=== PATIENT | male | born 1990 | race Caucasian/White ===

== ENCOUNTER 2019-11-03 02:09 | Emergency (ER) | payer MEDICAID, SELFPAY ==
[2019-11-03 02:10] VITALS: BP 133/72; PULSE 84; RESP 20; TEMP 37.2; O2SAT 97
[2019-11-03] MEDS: AMOXICILLIN 500 MG CAPSULE PO (02:38)
--- NOTE | 2019-11-03 02:51 | ED_ITS ---
HPI - Dental/Oral General Chief complaint: Dental/Oral Stated complaint: tooth pain Source: patient Mode of arrival: ambulatory Limitations: no limitations History of Present Illness HPI Narrative: 29-year-old male complains of left maxillary tooth pain and left cheek pain for the last month. He took and amoxicillin tablet recently and had some temporary relief. this evening he has excruciating pain.Another a moxicillin this evening made no difference. He denies fevers chills difficulty swallowing or neck pain. He recently missed an appointment to see his dentist and has to reschedule Location: Tooth # (15) Related Data Allergies Allergy/AdvReac Type Severity Reaction Status Date / Time No Known Allergies Allergy Verified 11/03/19 02:24 Review of Systems ENT: Reports system reviewed and no additional complaints, except as documented [facility] Social History Social History (Updated 11/03/19 @ 03:00 by Alex Rashid MD) Substance use type: does not use Exam Const: Other: Appears to be in severe pain, holding the left side of his face, moving from upright to hip flexed position. HENMT: Other: There is no facial swelling or erythema. Is a fully open his mouth. There is inflammation along his gum line. no left axillary dental caries appreciated. He has severe pain with tapping of tooth #14. Eyes: Other: Neck: Neck: no lymphadenopathy Course Course Emergency Course: pain decreased to a 8/10 after 2 [place] 5/325. He was also given amoxicillin 500. Vital Signs Vital signs: Vital Signs Temperature 37.2 C 11/03/19 02:10 Pulse Rate 84 11/03/19 02:10 Respiratory Rate 11/03/19 02:10 Blood Pressure 133/72 11/03/19 02:10 Pulse Oximetry 97 11/03/19 02:10 Temperature 37.2 C 11/03/19 02:10 Pulse Rate 84 11/03/19 02:10 Respiratory Rate 20 11/03/19 02:10 Blood Pressure 133/72 11/03/19 02:10 Pulse Oximetry 97 11/03/19 02:10 MDM - Dental/Oral Differential Diagnosis Differential diagnosis: Likely dental caries, dental abscess and other (drug seeking) Discharge Plan Discharge Clinical Impression: Dental abscess Patient Disposition: Home, Self-Care Condition: Stable Instructions: Antibiotic Form, Dental Abscess (ED), Toothache (ED) Additional Instructions: Make follow-up appointment with dentist Prescriptions: New amoxicillin 500 mg capsule 500 mg PO Q8H Qty: 21 RF: 0 hydrocodone-acetaminophen [[place]] 5-325 mg tablet 2 tablet PO Q6H PRN (Reason: pain) Qty: 8 RF: 0 Follow-up/Referrals: NON-NURSING STAFF,ADMISSIONS [Primary Care Provider] - Stand Alone Forms: Work/School Release IP Time of Disposition: 02:55 Discharge Date/Time: 11/03/19 03:02
== END 2019-11-03 03:02 | disposition home or self-care (01) ==
PROVIDERS: Emergency Provider Family Medicine
DX: K04.7 Periapical abscess without sinus (principal)
CPT/HCPCS: 99283; A9270

== ENCOUNTER 2019-11-05 03:10 | Emergency (ER) | payer MEDICAID, SELFPAY ==
[2019-11-05 03:19] VITALS: BP 150/89; PULSE 75; RESP 20; TEMP 36.2; O2SAT 98
--- NOTE | 2019-11-05 03:33 | ED.DENTAL ---
HPI - Dental/Oral General Chief complaint: Dental/Oral Stated complaint: TOOTH ACHE Source: patient Mode of arrival: ambulatory Limitations: no limitations History of Present Illness HPI Narrative: patient presents with dental pain, has a history of dental caries, was some recently in our ER approximately 1 day ago and was treated for a dental infection was given antibiotics and hydrocodone was sent to his pharmacy. The patient states that he did not potato picker his pain medication but after reviewing the the pharmacy records he did potato picker the the hydrocodone. Currently there is no fever or chills as tender left submandibular gland with no shortness of breath no nausea vomiting. MD Complaint: tooth pain Teeth map: 1. Onset (ago): hour(s) Duration: constant Severity: moderate Severity scale (1-10): 8 Relieving factors: nothing Exacerbating factors: chewing and cold Context: history of dental caries and poor dental care Associated symptoms: gum swelling Treatment prior to arrival: none Related Data Allergies Allergy/AdvReac Type Severity Reaction Status Date / Time No Known Allergies Allergy Verified 11/03/19 02:24 Review of Systems Review of Systems: All systems reviewed & are unremarkable except as noted in HPI and below PMFSH Past Medical History Medical History Dental caries Social History Social History Substance use type: does not use Exam Const: General: no acute distress and alert Orientation/consciousness: patient oriented x3 HENMT: Head: normal to inspection Other: right upper molar dental pain with surrounding gum inflammation Eyes: Pupils: Equal, round and reactive pupils present Neck: Neck: normal visual inspection and no lymphadenopathy Chest: Chest palpation & inspection: normal inspection of the chest Resp: Effort & Inspection: normal respiratory effort Cardio: Rate: regular rate Rhythm: regular rhythm GI: Auscultation: normal bowel sounds Back/Spine/Pelvis: Back: no CVA tenderness Skin: General skin exam: normal color Rashes: no rashes Neuro: General: patient oriented x3, moves all extremities and no meningeal signs Extrem: General: normal to inspection Psych: Appearance: grossly normal Mental Status: mental status grossly normal Course Vital Signs Vital signs: Vital Signs Temperature 36.2 C L 11/05/19 03:19 Pulse Rate 75 11/05/19 03:19 Respiratory Rate 20 11/05/19 03:19 Blood Pressure 150/89 H 11/05/19 03:19 Pulse Oximetry 98 11/05/19 03:19 Temperature 36.2 C L 11/05/19 03:19 Pulse Rate 75 11/05/19 03:19 Respiratory Rate 11/05/19 03:19 Blood Pressure 150/89 H 11/05/19 03:19 Pulse Oximetry 98 11/05/19 03:19 Critical Care Time Critical Care Time Critical Care Time: No Discharge Plan Discharge Clinical Impression: Dental abscess Patient Disposition: Home, Self-Care Condition: Stable Instructions: Antibiotic Form, Dental Abscess (ED) Additional Instructions: take medicine as prescribed, follow-up with dentist as soon as possible for further evaluation and treatment. Prescriptions: New tramadol [[place]] 50 mg tablet 50 mg PO Q6H PRN (Reason: pain) Qty: 20 RF: 0 No Action amoxicillin 500 mg capsule 500 mg PO Q8H Qty: 21 RF: 0 hydrocodone-acetaminophen [[place]] 5-325 mg tablet 2 tablet PO Q6H PRN (Reason: pain) Qty: 8 RF: 0 Follow-up/Referrals: UNKNOWN,DOCTOR [Primary Care Provider] - Stand Alone Forms: Work/School Release IP Time of Disposition: 03:40
[2019-11-05] MEDS: KETOROLAC (*BKC) 60 MG/2 ML VIAL IM (03:41)
[2019-11-05 03:44] VITALS: BP 140/82; PULSE 85; RESP 20; O2SAT 98
== END 2019-11-05 04:01 | disposition home or self-care (01) ==
PROVIDERS: Emergency Provider Emergency Medicine
DX: K04.7 Periapical abscess without sinus (principal)
CPT/HCPCS: 96372; 99283; J1885

== ENCOUNTER 2019-11-12 20:56 | Emergency (ER) | payer MEDICAID, SELFPAY ==
[2019-11-12 21:00] VITALS: BP 147/83; PULSE 76; RESP 24; TEMP 36.8; O2SAT 99
[2019-11-12 21:38] VITALS: RESP 20; O2SAT 99
--- NOTE | 2019-11-12 21:53 | ED.DENTAL ---
HPI - Dental/Oral General Chief complaint: Dental/Oral Stated complaint: tooth ache Time Seen by Provider: 11/12/19 21:30 Source: patient Mode of arrival: ambulatory Limitations: no limitations History of Present Illness HPI Narrative: 29-year-old man comes in tonight complaining of dental pain he has had for the last month. Patient states he saw a dentist 3 weeks ago and they talked about extraction. A week ago he received antibiotics and pain medication but he has used all of them As of 2 days ago. He states that in the last 4 hours his pain got much worse. The pain is in the left upper 1st and 2nd molars and he denies difficulty swallowing, difficulty breathing, fever, vomiting, facial swelling, and previous similar symptoms. MD Complaint: tooth pain Teeth map: 1. Tenderness Onset (ago): hour(s) (4) Duration: constant Severity: severe Relieving factors: nothing Exacerbating factors: chewing Treatment prior to arrival: oral analgesic ( Tylenol. Took 600 mg ibuprofen yesterday, but none today.) Related Data Allergies Allergy/AdvReac Type Severity Reaction Status Date / Time No Known Allergies Allergy Verified 11/03/19 02:24 Review of Systems Constitutional: Constitutional: Denies chills and Denies fever(s) Eyes: Eyes: Denies change in vision and Denies photophobia ENT: Denies dysphagia, Denies nasal congestion and Denies sore throat Cardiovascular: Cardiovascular: Denies chest pain and Denies radiating jaw, neck or arm pain Respiratory: Respiratory: Denies cough, Denies dyspnea and Denies wheezing Gastrointestinal: Gastrointestinal: Denies abdominal pain, Denies nausea and Denies vomiting Musculoskeletal: Musculoskeletal: Denies arthralgias and Denies joint swelling Integumentary/Breasts: Skin/Breast: Denies pruritus, Denies erythema and Denies rash Neurologic: Denies vertigo, Denies dizziness, Denies syncope, Denies focal weakness and Denies numbness Hematologic/Lymphatic: Hematologic/Lymphatic: Denies easy bleeding and Denies easy bruising Allergic/Immunologic: Allergic/Immunologic: Denies lip swelling and Denies wheezing PMFSH Past Medical History Medical History Dental caries Social History Social History Substance use type: does not use Exam Const: General: healthy appearing and alert Nutritional Appearance: well nourished Orientation/consciousness: patient oriented x3 Limitations: no limitations Other: moderate acute distress. HENMT: Ears: external ears normal, TM's normal bilaterally and EAC's normal Mouth: Yes Normal oral and palatal mucosa present and Yes moist mucous membranes Throat: posterior oropharynx normal and uvula midline Other: Tenderness teeth number 14 15. No swelling or gum erythema noted. Eyes: Conjunctivae: conjunctivae normal Pupils: Equal, round and reactive pupils present EOM: EOMs intact bilaterally Neck: Neck: normal visual inspection and no lymphadenopathy Resp: Effort & Inspection: normal respiratory effort and not labored Auscultation: clear to auscultation bilaterally, no rales, no rhonchi and no wheezes Cardio: Rate: regular rate Rhythm: regular rhythm Heart sounds: no murmurs Skin: General skin exam: normal color, no jaundice and no pallor Rashes: no rashes Neuro: General: patient oriented x3, moves all extremities, no meningeal signs, no focal motor deficits and CN's II-XI intact bilaterally Speech: normal speech Extrem: General: normal to inspection and no clubbing, cyanosis or edema Psych: Appearance: grossly normal and well kempt Mental Status: mental status grossly normal Affect: normal affect Attitude: cooperative Thought content: Yes Normal thought content present Course Course Emergency Course: As [employer] was down at the time of this visit was given written prescriptions for Tylenol with codeine, quantity 15, sig
--- NOTE | 2019-11-12 22:55 | PC.NURSE ---
[facility] DOWNTIME DURING PATIENT ER VISIT. PAPER CHARTING COMPLETED. MEDICATIONS ADMINISTERED BY PAPER MAR. MEDICATIONS ORDERED BY ERP PER PAPER MEDICATION ORDERING SHEET. PLEASE SEE PAPER CHART FOR FURTHER INFORMATION.
== END 2019-11-12 21:41 | disposition home or self-care (01) ==
PROVIDERS: Emergency Provider Emergency Medicine
DX: K08.89 Other specified disorders of teeth and supporting structures (principal)
CPT/HCPCS: 99283

== ENCOUNTER 2020-11-08 15:14 | Emergency (ER) | payer OTHER, SELFPAY ==
[2020-11-08] MEDS: TETRACAINE HCL 0.5% OPHTH SOLN 4 ML BTL 1 DROP EACH EYE (15:30)
[2020-11-08] MEDS: DACRIOSE EYE IRRIGATION 118 ML BOTTLE EACH EYE (15:30)
[2020-11-08] MEDS: FLUORESCEIN SOD 1 MG/STRIP EACH EYE (15:30)
[2020-11-08 15:32] VITALS: BP 131/86; PULSE 81; RESP 18; TEMP 37.2; O2SAT 99
[2020-11-08] MEDS: ERYTHROMYCIN OPHTH OINTMENT 3.5 GM TUBE 1 APPLIC EACH EYE (16:24)
--- NOTE | 2020-11-08 16:24 | PC.NURSE ---
[facility] CONTACTED FOR CONSULT
--- NOTE | 2020-11-08 16:24 | ED.EYEPROB ---
HPI - Eye Problem General Chief complaint: Eye Problems Stated complaint: Metal shavings in both eyes Time Seen by Provider: 11/08/20 15:35 Source: patient and family Mode of arrival: ambulatory Limitations: no limitations History of Present Illness HPI Narrative: This young man comes in with bilateral eye pain, and a sensation he has something in both eyes. 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 chief complaint: eye pain and eye injury Onset (ago): hour(s) Onset description: sudden Duration: constant Location: both eyes Eye Symptoms: foreign body sensation Place: home Mechanism: occurred while hammering/grinding Severity: severe If Pain, Quality: sharp Associated symptoms: other Treatments Prior to Arrival: irrigated eye and other (dark rook) Related Data Home Medications Medication Instructions Recorded Confirmed No Home Medications 11/08/20 11/08/20 Allergies Allergy/AdvReac Type Severity Reaction Status Date / Time No Known Allergies Allergy Verified 11/03/19 02:24 Review of Systems Constitutional: Constitutional: Reports no additional constitutional complaints Eyes: Eyes: Reports no additional eye complaints ENT: Reports system reviewed and no additional complaints, except as documented Cardiovascular: Cardiovascular: Reports no additional cardiovascular complaints Respiratory: Respiratory: Reports no additional respiratory complaints Gastrointestinal: Gastrointestinal: Reports no additional gastrointestinal complaints Genitourinary: Genitourinary: Reports no additional male genitourinary complaints Musculoskeletal: Musculoskeletal: Reports no additional musculoskeletal complaints Integumentary/Breasts: Skin/Breast: Reports system reviewed and no additional complaints, except as docu Neurologic: Reports system reviewed and no additional complaints, except as documented Psychiatric: Psychiatric: Reports no additional psychiatric complaints Endocrine: Endocrine: Reports no additional endocrine complaints Hematologic/Lymphatic: Hematologic/Lymphatic: Reports no additional hematologic/lymphatic complaints Allergic/Immunologic: Allergic/Immunologic: Reports no additional allergic/immunologic complaints [facility] Past Medical History Medical History Dental caries No significant past medical history Surgical History Surgical History No significant past surgical history Family History Family History Other No significant family history Social History Social History Smoking status: Current every day smoker Tobacco type: cigarettes Additional smoking assessment comments: 1 PPD Alcohol intake: current Drinks per week: 3 Substance use type: does not use Exam Const: Orientation/consciousness: patient oriented x3 HENMT: Head: normal to inspection Ears: external ears normal and TM's normal bilaterally General nose exam: Normal external nose present Mouth: Yes Normal oral and palatal mucosa present Throat: posterior oropharynx normal Eyes: Other: mild conjunctivae injection / inflammation After tetracaine 2 drops were given in both eyes, the eyes were examined. There was little fluorescein uptake. He appears to have a foreign body, a tiny piece of metal on the right cornea at the three o'clock position. He appears to have a piece of metal in the left cornea at the four o'clock position. After informed consent was obtained the fragment in the right eye was swabbed with a wet cotton swab. It appeared that the fragment was removed, but residual staining, or perhaps part of this fragment was retained. Following this an attempt was made to remove the rest of
[2020-11-08] MEDS: CIPROFLOXACIN HCL 0.3% OPHTH OINT 3.5 GM 1 APPLIC EACH EYE (16:42)
== END 2020-11-08 17:04 | disposition home or self-care (01) ==
PROVIDERS: Emergency Provider Emergency Medicine; PCP Physician Assistant
DX: T15.92XA Foreign body on external eye, part unspecified, left eye, initial encounter (principal); T15.91XA Foreign body on external eye, part unspecified, right eye, initial encounter; X58.XXXA Exposure to other specified factors, initial encounter
CPT/HCPCS: 99282; 99283; A9270